=== PATIENT | female | born 2000 | race Two or more races ===

== ENCOUNTER → 2025-04-21 | Outpatient (CLI) | payer MEDICAID, SELFPAY ==
--- NOTE | 2025-04-21 13:30 | XR_ITS ---
Examination: Pelvic ultrasound, transabdominal, complete Technique: Transabdominal ultrasound of the pelvis performed using grayscale imaging Date and time of exam: April 21, 2025, 1411 hours INDICATIONS: Irregular heavy menses 10 years FINDINGS: Uterus 8.0 cm mild free fluid in the endometrium Endometrial stripe 0.6 cm No uterine mass or intrauterine gestation Right ovary 2.3 cm arterial flow small follicles Left ovary obscured by bowel gas IMPRESSION: No uterine mass or intrauterine gestation
== END | disposition home or self-care (01) ==
PROVIDERS: PCP Physician Assistant; Referring Provider Physician Assistant; Visit Provider Physician Assistant
DX: N92.1 Excessive and frequent menstruation with irregular cycle (principal)
CPT/HCPCS: 76856